=== PATIENT | male | born 1940 | race Caucasian/White ===

== ENCOUNTER 2020-09-08 16:55 | Emergency (ER) | payer MEDICARE, OTHER ==
--- NOTE | 2020-09-08 17:34 | EDM.PDOC ---
ED HPI GENERAL MEDICAL PROBLEM - General Chief Complaint: Laceration Stated Complaint: BLEEDING FINGER Time Seen by Provider: 09/08/20 17:18 Source of Information: Reports: Patient History Limitations: Reports: No Limitations - History of Present Illness INITIAL COMMENTS - FREE TEXT/NARRATIVE: presented to the ER with a cut wound to the right middle finger - occurred 30 min ago. tetanus status - out of date patient was working on a heavy machine equipment bleeding controlled with pressure denies any pain Onset: Today Duration: Minutes:, Hour(s): (1) Location: Reports: Upper Extremity, Right - Related Data Allergies Allergy/AdvReac Type Severity Reaction Status Date / Time No Known Drug Allergies Allergy Other Verified 09/08/20 17:25 Past Medical History - Past Health History Medical/Surgical History: Denies Medical/Surgical History ED ROS GENERAL - Review of Systems Review Of Systems: See Below Constitutional: Reports: No Symptoms HEENT: Reports: No Symptoms Respiratory: Reports: No Symptoms Cardiovascular: Reports: No Symptoms Musculoskeletal: Reports: No Symptoms Neurological: Reports: No Symptoms ED EXAM, SKIN/RASH Exam: See Below Exam Limited By: No Limitations General Appearance: Alert, WD/WN, No Apparent Distress Respiratory/Chest: No Respiratory Distress, Lungs Clear Cardiovascular: Normal Peripheral Pulses Back Exam: Normal Inspection Neurological: Alert, Oriented, No Motor/Sensory Deficits Skin: Other (there is a 3 com superficial laceration to the right middle finger) ED SKIN PROCEDURES - Laceration/Wound Repair Right Distal Digit - 3rd (Middle) Appearance: Superficial, Irregular Distal NVT: Neuro & Vascular Intact, No Tendon Injury Anesthetic Type: Local Local Anesthesia - Lidocaine (Xylocaine): 1% with EPI Local Anesthetic Volume: 2cc Skin Prep: Chlorhexidine (Hibiciens), Providone-Iodine (Betadine) Exploration/Debridement/Repair: Wound Explored, Explored to Base, No Foreign Material Found Closed with: Sutures Lac/Wound length In cm: 3 Suture Size: 5-0 # of Sutures: 6 Suture Type: Prolene Sterile Dressing Applied: Provider Tetanus Status Addressed: Yes Complications: No Course - Re-Assessments/Exams Free Text/Narrative Re-Assessment/Exam: wound closure with suture local abx ointment dressing change tdap IM po abx Departure - Departure Time of Disposition: 18:04 Disposition: Home, Self-Care 01 Condition: Good Clinical Impression: Laceration of finger of right hand Qualifiers: Encounter type: initial encounter Finger: middle finger Damage to nail status: without damage Foreign body presence: without foreign body Qualified Code(s): S61.212A - Laceration without foreign body of right middle finger without damage to nail, initial encounter - Discharge Information *PRESCRIPTION DRUG MONITORING PROGRAM REVIEWED*: Not Applicable *COPY OF PRESCRIPTION DRUG MONITORING REPORT IN PATIENT WILIAM: Not Applicable Referrals: PCP,None [Primary Care Provider] - - Problem List & Annotations (1) Laceration of finger of right hand SNOMED Code(s): 395207613, [id number] Code(s): S61.219A - LACERATION W/O FB OF UNSP FINGER W/O DAMAGE TO NAIL, INIT Status: Acute Priority: Medium Current Visit: Yes Qualifiers: Encounter type: initial encounter Finger: middle finger Damage to nail status: without damage Foreign body presence: without foreign body Qualified Code(s): S61.212A - Laceration without foreign body of right middle finger w ithout damage to nail, initial encounter - Problem List Review Problem List Initiated/Reviewed/Updated: Yes - Assessment/Plan Plan: - apply antibiotics ointment once daily - take oral antibiotics for 3 days - return to the clinic after 7-10 days for suture removal - watch for signs of wound infection - do not get the wound wet the first 48 hrs
[2020-09-08] MEDS ORDERED: Amoxicillin 500 MG Cap ONE (18:00)
[2020-09-08] MEDS: Bacitracin Oint 1 GM U/D Packet TOP ONE (18:00)
[2020-09-08] MEDS: Diphtheria,Pertussis(Acell),Tetanus Vaccine 0.5 ML SDV IM ONE (18:02)
[2020-09-08] MEDS: Lidocaine 1% with EPINEPHrine 1:100,000 50 ML MDV INJECT SCH (18:27)
== END 2020-09-08 18:15 | disposition home or self-care (01) ==
LOC: LB.ED 16:59
DX: S61.212A Laceration without foreign body of right middle finger without damage to nail, initial encounter (principal); Z23 Encounter for immunization; W26.8XXA Contact with other sharp object(s), not elsewhere classified, initial encounter
CPT/HCPCS: 12002; 90471; 90715; 99282; 99282-25; A9270-GY